=== PATIENT | male | born 1960 | race Caucasian/White ===

== ENCOUNTER → 2017-08-22 | Outpatient (CLI) | payer OTHER ==
[~2017-08-22] MED LIST: CEPH500C PO
[2017-08-22 13:16] LABS: CHOLESTEROL/HDL RATIO 5.8
== END | disposition home or self-care (01) ==
LOC: C.LABBFT 08:38
PROVIDERS: ATTEND Family Medicine
DX: E78.2 Mixed hyperlipidemia (principal)